=== PATIENT | male | born 1960 | race Caucasian/White ===

== ENCOUNTER 2023-11-25 11:21 | Outpatient (REF) | payer MEDICAID, SELFPAY ==
[2023-11-25 13:12] LABS: Ferritin 68 ng/mL (20-250)
== END 2023-11-25 11:22 | disposition home or self-care (01) ==
LOC: HO.BBR 11:21
PROVIDERS: Visit Provider Internal Medicine Gastroenterology
DX: E83.110 Hereditary hemochromatosis (principal)
CPT/HCPCS: 36415; 82728

== ENCOUNTER 2024-03-30 11:17 | Outpatient (REF) | payer MEDICARE, SELFPAY ==
[2024-03-30 14:07] LABS: Ferritin 38 ng/mL (20-250)
== END 2024-03-30 11:18 | disposition home or self-care (01) ==
LOC: HO.BBR 11:17
PROVIDERS: PCP Family Medicine; Visit Provider Internal Medicine Gastroenterology
DX: E83.110 Hereditary hemochromatosis (principal)
CPT/HCPCS: 36415; 82728

== ENCOUNTER 2024-07-26 10:53 | Outpatient (REF) | payer MEDICARE, SELFPAY ==
[2024-07-26 13:08] LABS: Ferritin 26 ng/mL (20-250)
== END 2024-07-26 10:54 | disposition home or self-care (01) ==
LOC: HO.BBR 10:53
PROVIDERS: PCP Family Medicine; Visit Provider Internal Medicine Gastroenterology
DX: E83.110 Hereditary hemochromatosis (principal)
CPT/HCPCS: 36415; 82728

== ENCOUNTER 2024-12-31 09:57 | Outpatient (REF) | payer MEDICARE, SELFPAY ==
[2024-12-31 12:22] LABS: Ferritin 17 ng/mL (20-250)
== END 2024-12-31 09:58 | disposition home or self-care (01) ==
LOC: HO.BBR 09:57
PROVIDERS: Visit Provider Internal Medicine Gastroenterology
DX: E83.110 Hereditary hemochromatosis (principal)
CPT/HCPCS: 36415; 82728

== ENCOUNTER 2025-04-26 10:53 | Outpatient (REF) | payer MEDICARE, SELFPAY ==
[2025-04-26 12:13] LABS: Ferritin 15 ng/mL (20-250)
--- OUTSIDE RECORDS SUMMARY | 2025-04-26 13:09 | XMS_ITS | Encounter Summary ---
Author Organization [facility] Address [address] [place] [address] Phone Care Team Providers Care Dive Superintendent Name Role Phone Silas Rinaldi MD Primary Care Provider [phone] Silas Rinaldi MD Unavailable [phone] Joaquina William CLINICAL ABSTRACTOR Primary Care Provider [phone] Rafael Paiz MD Unavailable [phone] Maximino Fraser CLINICAL ABSTRACTOR Primary Care Pr ovider Tacos Adams MD Primary Care Provider [phone] Encounter Details Date Type Department Care Team (Latest Contact Info) Description 05/15/2018 Transcribe Orders [facility] Therapeutic Phlebotomy [address] [place] [address] Deven Bran MD [address] [place] [address] Hemochromatosis, unspecified hemochromatosis type (Primary Dx) Social History Tobacco Use Types Packs/Day Years Used Date Smoking Tobacco: Never Assessed Sex and Gender Information Value Date Recorded Sex Assigned at Not on file Legal Sex Male 9:50 PM EDT Gender Identity Not on file Sexual Orientation Not on file documented as of this encounter Plan of Treatment Not on file documented as of this encounter Procedures Procedure Name Priority Date/Time Associated Diagnosis Comments THERAPEUTIC PHLEBOTOMY Routine 05/20/2018 8:59 AM EDT Hemochromatosis, unspecified hemochromatosis type documented in this encounter Results * Therapeutic phlebotomy (05/20/2018 8:59 AM EDT) Jhoana Garcia - 05/20/2018 8:59 AM EDT See therapeutic phlebotomy flowsheet for procedure details Deven Bran MD PROCEDURE/MINOR SURGICAL PERFO RMABLES Final Result documented in this encounter Visit Diagnoses Diagnosis Hemochromatosis, unspecified hemochromatosis type- Primary documented in this encounter Care Teams Dive Superintendent Relationship Specialty Start Date End Date Silas Rinaldi MD [email or web address] PCP - General 06/05/17 04/26/21 Joaquina William NP [address] [place] [address] [email or web address] PCP - General 04/27/21 03/27/23 Maximino Fraser NP [address] [place] [address] [email or web address] PCP - General Nurse Practitioner 03/28/23 12/09/24 Tacos Adams MD [address] [place] [address] [email or web address] PCP - General Internal Medicine 12/10/24 Silas Rinaldi MD [address] [place] [phone] [email or web address] Insurance Assigned Provider 12/20/17 04/28/21 Rafael Paiz MD [address] [place] [address] [email or web address] Insurance Assigned Provider 06/23/21 06/23/22 documented as of this encounter Additional Source Comments The information contained in this document represents components of the legal health record. It is not the complete legal health record.[facility]
--- OUTSIDE RECORDS SUMMARY | 2025-04-26 13:09 | XMS_ITS | Encounter Summary ---
Author Organization [facility] Address [address] [place] [address] Phone Care Team Providers Care Process Validation Engineer Name Role Phone Silas Rinaldi MD Primary Care Provider [phone] Silas Rinaldi MD Unavailable [phone] Joaquina William TRUCK RENTAL MANAGER Primary Care Provider [phone] Rafael Paiz MD Unavailable [phone] Vicki Walden Halima Ailyn TRUCK RENTAL MANAGER Primary Care Pr ovider Tacos Adams MD Primary Care Provider [phone] Encounter Details Date Type Department Care Team (Latest Contact Info) Description 05/15/2018 Transcribe Orders [facility] Therapeutic Phlebotomy 30 [place] [address] Deven Bran MD [address] [place] [address] Hemochromatosis, unspecified hemochromatosis type (Primary Dx) Social [...] on file documented as of this encounter Results * Ferritin (05/20/2018 8:55 AM EDT) FERRITIN 47 30 - 400 ug/L [facility] Blood 05/20/2018 8:55 AM EDT 05/20/2018 8:56 AM EDT us Deven Bran MD LAB BLOOD ORDERABLES Final Res ult [address] [address] documented in this encounter Visit Diagnoses Diagnosis Hemochromatosis, unspecified hemochromatosis type- Primary documented in this encounter Care Teams Process Validation Engineer Relationship Specialty Start Date End Date Silas Rinaldi MD [email or web address] PCP - General 06/05/17 04/26/21 Joaquina William NP [address] [place] [address] [email or web address] PCP - General 04/27/21 03/27/23 Vicki Walden Halima ABEL Robertson [address] [place] [address] [email or web address] PCP - General Nurse Practitioner 03/28/23 12/09/24 Tacos Adams MD [address] [place] [address] [email or web address] PCP - General Internal Medicine 12/10/24 Silas Rinaldi MD [address] [place] [phone] [email or web address] Insurance Assigned Provider 12/20/17 04/28/21 Rafael Paiz MD [address] [place] [address] [email or web address] Insurance Assigned Provider 06/23/21 06/23/22 documented as of this encounter Additional Source Comments The information contained in this document represents components of the legal health record. It is not the complete legal health record.[facility]
--- OUTSIDE RECORDS SUMMARY | 2025-04-26 13:09 | XMS_ITS | Encounter Summary ---
Author Organization [facility] Address [address] [place] [address] Phone Care Team Providers Care Account Adjuster Name Role Phone Silas Rinaldi MD Primary Care Provider [phone] Silas Rinaldi MD Unavailable [phone] Joaquina William KEY PUNCH OPERATOR Primary Care Provider [phone] Rafael Paiz MD Unavailable [phone] Maximino Fraser KEY PUNCH OPERATOR Primary Care Pr ovider Tacos Adams MD Primary Care Provider [phone] Encounter Details Date Type Department Care Team (Latest Contact Info) Description 06/25/2017 Transcribe Orders Virtual Department 30 [place] [address] Deven Gonzalez MD [address] [place] [address] [email or web address] Hemochromatosis, unspecified hemochromatosis type (Primary Dx) Social [...] on file documented as of this encounter Visit Diagnoses Diagnosis Hemochromatosis, unspecified hemochromatosis type- Primary documented in this encounter Care Teams Account Adjuster Relationship Specialty Start Date End Date Silas Rinaldi MD [email or web address] PCP - General 06/05/17 04/26/21 Joaquina William, ABEL [address] [place] [address] [email or web address] PCP - General 04/27/21 03/27/23 Maximino Fraser NP [address] [place] [address] [email or web address] PCP - General Nurse Practitioner 03/28/23 12/09/24 Tacos Adams MD [address] [place] [address] [email or web address] PCP - General Internal Medicine 12/10/24 Silas Rinaldi MD [address] [place] [phone] [email or web address] Insurance Assigned Provider 12/20/17 04/28/21 Rafael Paiz MD [address] [place] [address] [email or web address] Insurance Assigned Provider 06/23/21 06/23/22 documented as of this encounter Additional Source Comments The information contained in this document represents components of the legal health record. It is not the complete legal health record.[facility]
--- OUTSIDE RECORDS SUMMARY | 2025-04-26 13:09 | XMS_ITS | Clinical Summary ---
Author Organization [facility] Address [address] [place] [address] Phone Care Team Providers Care Repair Clerk Name Role Phone Tacos Adams MD Primary Care Provider Allergies No known active allergies Medications No known medications Encounters Date Type Department Care Team Description 03/04/2025 10:30 AM EDT Office Visit [facility] General Surgical Care [address] [place] [address] [place] [address] Brigette Vieira MD Status post bilateral inguinal hernia repair (Primary Dx) 02/11/2025 Telephone [facility] Surgical [address] [place] [address] Brigette Vieira MD post op call 02/10/2025 10:51 AM EDT - 02/10/2025 12:39 PM EDT Surgery OR Admitting Dept - Virtual Department [address] [place] [address] Brigette Vieira MD LAPAROSCOPIC REPAIR HERNIA INGUINAL 02/10/2025 10:50 AM EDT Anesthesia Event OR Admitting Dept - Virtual Department [address] [place] [address] Fareed Mota Jr., Rosa Maria Lynch MD 02/10/2025 9:19 AM EDT - 02/10/2025 1:37 PM EDT Hospital Encounter OR Admitting Dept - Virtual Department [address] [place] [address] Brigette Vieira MD Discharge Disposition: Home or Self Care 02/10/2025 Procedure Pass OR Admitting Dept - Virtual Department 30 [place] [address] 02/09/2025 8:00 AM EDT Pre-Admission Testing Pre Procedure Evaluation 30 [place] [address] Brigette Vieira MD from Last 3 Months Immunizations Immunization Administration Dates Next Due Td (adult),2 Lf Tetanus Toxoid, PF, Adsorbed Tdap 04/05/2011 Social History Tobacco Use Types Packs/Day Years Used Date Smoking Tobacco: Never Smokeless Tobacco: Never Tobacco Cessation:Counseling Given: Not Answered Alcohol Use Standard Drinks/Week Comments Not Currently 0 (1 standard drink = 0.6 oz pur e alcohol) Education Answer Date Recorded Are you interested in more education? Not on tara e 12/13/2022 Are you concerned about learning? Not on file 12/13/2022 No 12/13/2022 No 12/13/2022 Digital Access Answer Date Recorded No 01/11/2023 No 01/11/2023 Reliable internet access at home? Not on file 01/11/2023 Device with a working camera? Not on file Intimate Partner Violence Answer Date R ecorded Are you denied basic needs s uch as food, clothing, or medical care? No 02/10/2025 In the past 12 months have y ou been in a relationship with a person who hurts, threatens, or tries to control you? No 02/10/2025 Are you denied basic needs s uch as food, clothing, or medical care? No 02/10/2025 In the past 12 months have y ou been in a relationship with a person who hurts, threatens, or tries to control you? No 02/10/2025 Sex and Gender Information Value Date Recorded Sex Assigned at Not on file Legal Sex Male 9:50 PM EDT Gender Identity Not on file Sexual Orientation Not on file Last Filed Vital Signs Vital Sign Reading Time Taken Comments Blood Pressure 120/60 03/04/2025 11:25 AM EDT Pulse 65 03/04/2025 11:25 AM EDT Temperature 36.6 C (97.8 F) 03/04/2025 11:25 AM EDT Respiratory Rate 12 02/10/2025 12:45 PM EDT Oxygen Saturation 97% 03/04/2025 11:25 AM EDT Inhaled Oxygen Concentration - - Weight 70.3 kg (155 lb) 02/10/2025 9:30 AM EDT Height 167.6 cm (5' 6 ) 02/10/2025 9:30 AM EDT Body Mass Index 25.02 02/10/2025 9:30 AM EDT Plan of Treatment Health Maintenance Due Date Last Done Comments DEPRESSION SCREENING 1970 COLOGUARD 11/24/2003 COLONOSCOPY 11/24/2003 COLORECTAL CANCER SCREENING 11/24/2003 FIT TEST 11/24/2003 FOBT 11/24/2003 SIGMOIDOSCOPY 11/24/2003 VIRTUAL COLONOSCOPY 11/24/2003 PNEUMOCOCCAL VACCINES (50+ years) (1 of 1 - PCV) 2008 ZOSTER VACCINES (1 of 2) 2008 INFLUENZA VACCINE (#1) 2025 COVID-19 VACCINE (1 - 2023-2 5 season) 2025 SCREENING FOR DIABETES 11/10/2026 , 03/20/2023 LIPID PANEL 03/20/2028 03/20/2023, 03/20/2023, 03/20/2023 Adult Td,Tdap Booster 03/06/2033 03/06/2023 , 04/05/2011 RSV VACCINE (1 - 1-dose 75+ series) 2033 HEPATITIS C SCREENING Completed 10/29/2019 SMOKING STATUS SCREENING (On ce After 26 Yrs) Completed 03/04/2025 HEPATITIS A VACCINES Aged Out No long er eligible based on patient's age to complete this topic HIB VACCINES Aged Out No longer eligi ble based on patient's age to complete this topic MENINGOCOCCAL VACCINES (ACWY) Aged Out No longer eligible based on patient's age to complete this topic MENINGOCOCCAL VACCINES (B) Aged Out N o longer eligible based on patient's age to complete this topic Medical Devices Implanted Type Area Laborer [employer] Device Identifier Shelf Expiration Date Model / Serial / Lot Graft Mesh 10.5cm 16cm 3dmax Polypropylene Monofilament Patch Laparoscopy Hernia Repair Right - [id number] Implanted:Qty: 1 on 02/10/2025 by Brigette Vieira MD at [facility] STANDARD Right: Abdomen [employer] 08/14/2029 [id number] / / [id number] Graft Mesh 10.5cm 16cm 3dmax Polypropylene Monofilament Patch Laparoscopy Hernia Repair Left - [id number] Implanted:Qty: 1 on 02/10/2025 by Brigette Vieira MD at [facility] Left: Inguinal [employer] 10/15/2028 [id number] / / Procedures Procedure Name Priority Date/Time Associated Diagnosis Comments AIRWAY PLACEMENT Routine 02/10/2025 10:5 6 AM EDT NE LAP,INGUINAL HERNIA REPR,INITIAL 02/10/2025 10:53 AM EDT Non-recurrent bilateral inguinal hernia without obstruction or gangrene from Last 3 Months Results * ANES ETT DOUBLE LUMEN - AIRWAY LDA (02/10/2025 10:56 AM EDT) Narrative Eddie Shen CRNA - 02/10/2025 10:56 AM EDT Eddie Shen CRNA 02/10/2025 11:08 AM Airway Placement Procedure Note: Patient was not difficult to intubate. Procedure performed by: fellow/resident/SOLUTION LEAD Anesthesiologist: Fareed Mota Jr., DO Fellow/Resident/SOLUTION LEAD: Eddie Shen CRNA Airway procedure initiated at:02/10/2025 10:56 AM and ended at. Personal Protective Equipment: Mask: surgical mask Gloves: gloves Mask Ventilation: Quality: easy Airway Placement: Technique: direct laryngoscopy Rapid sequence induction: no Details: Blade type: Mac Blade size: 3 Direct view: grade 1 Number of attempts: 1 ETT type: cuffed ETT size: 7.5 ETT depth at teeth: 22 ETT cuff inflation volume: 5 Tube position confirmed by: bilateral breath sounds and EtCO2 Outcomes: Evidence of dental injury? no Complications observed? no Fareed Mota Jr., DO NE ANESTHESIA Final R esult from Last 3 Months Insurance MEDICARE PART A & B Member Subscriber Plan / Payer (Ef fective 2023-Present) Name:Linda Paez Member ID:[id number] Relation to Subscriber:Self Name:Linda Paez Subscriber ID:[id number] Payer ID:[id number] Group ID:Not on file Type:Medicare Address: [facility] [employer] [facility] 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 It is not the complete legal health record.[facility]
--- OUTSIDE RECORDS SUMMARY | 2025-04-26 13:09 | XMS_ITS | Encounter Summary ---
Author Organization [facility] Address [address] [place] [address] Phone Care Team Providers Care Assistant Grocery Store Manager Name Role Phone Stewart Joaquina Kirby HERBOLOGIST Primary Care Provider [phone] Halima Fraser HERBOLOGIST Primary Care Pr ovider Tacos Adams MD Primary Care Provider [phone] Encounter Details Date Type Department Care Team (Latest Contact Info) Description 03/21/2023 Transcribe Orders [facility] Laboratory [address] [place] [address] Deven Gonzalez MD [address] [facility] [address] [place] [address] [email or web address] Hereditary hemochromatosis (Primary Dx); Diarrhea, unspecified type Social History Tobacco Use Types Packs/Day Years Used Date Smoking Tobacco: Never Assessed Education Answer Date Recorded Are you interested in more education? Not on tara e 12/13/2022 Are you concerned about learning? Not on file 12/13/2022 No 12/13/2022 No 12/13/2022 Digital Access Answer Date Recorded No 01/11/2023 No 01/11/2023 Reliable internet access at home? Not on file 01/11/2023 Device with a working camera? Not on file Sex and Gender Information Value Date Recorded Sex Assigned at Not on file Legal Sex Male 9:50 PM EDT Gender Identity Not on file Sexual Orientation Not on file documented as of this encounter Plan of Treatment Not on file documented as of this encounter Results * Giardia antigen screen (03/28/2023 11:00 AM EDT) ST GIARDIA ANTIGEN Negative Negative [facility] DPT OF LAB MED AND PAT+ Comment: (NOTE) ADDITIONAL INFORMATION Test Performed by Enzyme Immunoassay. Stool (Stool) 03/28/2023 11: 00 AM EDT 03/28/2023 1:14 PM EDT Deven Gonzalez MD MICROBIOLOGY - GENERAL ORD ERABLES Final Result Performing Organization Address [facility] Co de Phone Number [facility] DPT OF LAB MED AND PAT+ [address] [place] [address] * Ova and parasites, stool (03/28/2023 11:00 AM EDT) Parasitic exam FINAL 3 1120 [facility] DPT OF LAB MED AND PAT+ Comment: (NOTE) SOURCE: STOOL, STLP OVA AND PARASITE, MICROSCOPY, F FINAL No parasites seen. Red blood cells present. Cryptosporidium, Cyclospora, and microsporidia are not readily detected by this method. Single negative specimen does not rule out parasitic infection. Stool (Stool) 03/28/2023 11: 00 AM EDT 03/28/2023 1:14 PM EDT Deven Gonzalez MD MICROBIOLOGY - GENERAL ORD ERABLES Final Result Performing Organization Address City/[facility] Co de Phone Number [facility] DPT OF LAB MED AND PAT+ [address] [place] [address] * Ova and parasites, stool (03/27/2023 6:40 AM EDT) Parasitic exam JONATHAN 3 1639 [facility] DPT OF LAB MED AND PAT+ Comment: (NOTE) SOURCE: STOOL, STLP Additional Report OVA AND PARASITE, MICROSCOPY, F FINAL No parasites seen. Cryptosporidium, Cyclospora, and microsporidia are not readily detected by this method. Single negative specimen does not rule out parasitic infection. Red blood cells present. Corrected on 04/07 AT 1741: previously reported as FINAL 04/04/2023 1053 Stool (Stool) 03/27/2023 6:4 0 AM EDT 03/28/2023 1:14 PM EDT Deven Gonzalez MD MICROBIOLOGY - GENERAL ORD ERABLES Edited Result - Final Performing Organization Address City/[facility]/ZIP Co de Phone Number [facility] DPT OF LAB MED AND PAT+ [address] [place] [address] * Ova and parasites, stool (03/26/2023 6:40 AM EDT) Parasitic exam FINAL 3 1142 [facility] DPT OF LAB MED AND PAT+ Comment: (NOTE) SOURCE: STOOL, STLP OVA AND PARASITE, MICROSCOPY, F FINAL No parasites seen. Leukocytes present. Red blood cells present. Cryptosporidium, Cyclospora, and microsporidia are not readily detected by this method. Single negative specimen does not rule out parasitic infection. Stool (Stool) 03/26/2023 6:4 0 AM EDT 03/28/2023 1:13 PM EDT Deven Gonzalez MD MICROBIOLOGY - GENERAL ORD ERABLES Final Result Performing Organization Address [facility] Co de Phone Number [facility] DPT OF LAB MED AND PAT+ [address] [place] [address] * Ferritin (03/21/2023 9:09 AM EDT) FERRITIN 51 30 - 400 ug/L [facility] Blood 03/21/2023 9:09 AM EDT 03/21/2023 9:18 AM EDT Deven Gonzalez MD LAB BLOOD ORDERABLES Final Result Performing Organization Address City/[facility]/ZIP Co de Phone Number [facility] [address] [place] [address] * TSH (03/21/2023 9:09 AM EDT) TSH 1.28 0.27 - 4.20 uIU/mL [facility] Blood 03/21/2023 9:09 AM EDT 03/21/2023 9:18 AM EDT Deven Gonzalez MD LAB BLOOD ORDERABLES Final Result Performing Organization Address City/[facility]/ZIP Co de Phone Number [address] [address] * (ABNORMAL) Iron and iron binding capacity (03/21/2023 9:09 AM EDT) Pathologist [facility] IRON 200(H) 45 - 160 ug/dL [facility] IRON BINDING CAPACITY 260 228 - 428 ug/dL [facility] TRANSFERRIN SATURAT. 77(H) 20 - 55 % [facility] Blood 03/21/2023 9:09 AM EDT 03/21/2023 9:18 AM EDT Deven Gonzalez MD LAB BLOOD ORDERABLES Final Result Performing Organization Address City/[facility] Co de Phone Number [address] [address] * (ABNORMAL) Comprehensive metabolic panel (03/21/2023 9:09 AM EDT) SODIUM 137 133 - 146 mmol/L [facility] POTASSIUM 4.5 3.3 - 5.1 mmol/L [facility] CHLORIDE 99 96 - 108 mmol/L [facility] CO2 27 21 - 35 mmol/L [facility] BUN 22(H) 6 - 19 mg/dL [facility] CREATININE 0.80 0.5 - 1.5 mg/dL [facility] GLUCOSE 91 70 - 99 mg/dL [facility] ALBUMIN 4.3 3.9 - 4.8 g/dL [facility] TOTAL PROTEIN 7.0 6.5 - 8.0 g/dL [facility] CALCIUM 9.5 8.4 - 10.3 mg/dL [facility] ALKALINE PHOSPHATASE 67 39 - 117 U/L [facility] TOTAL BILIRUBIN 0.6 0.0 - 1.2 mg/dL [facility] AST 22 0 - 37 U/L [facility] ALT 21 0 - 40 U/L [facility] GLOBULIN 2.7 1 - 4.8 g/dL [facility] EGFR 99 >59 mL/min/1.7 3m2 [facility] Comment:Estimated glomerular filtration rate calculated using the CKD-EPI refit equation. ANION GAP 16 10 - 20 mmol/L [facility] Blood 03/21/2023 9:09 AM EDT 03/21/2023 9:18 AM EDT us Deven Gonzalez MD LAB BLOOD ORDERABLES Final Result [address] [address] * (ABNORMAL) CBC (03/21/2023 9:09 AM EDT) WBC 5.59 4.00 - 11.00 K/uL [facility] RBC 4.68 3.90 - 5.69 M/uL [facility] HGB 15.5 12.4 - 17.3 g/dL [facility] HCT 44.4 37.0 - 51.0 % [facility] PLT 266 140 - 430 K/uL [facility] MCV 94.9 78.0 - 97.0 fL [facility] MCH 33.1(H) 25.0 - 33.0 pg [facility] MCHC 34.9 32.0 - 36.0 g/dL [facility] RDW 11.8 11.0 - 15.0 % [facility] MPV 10.2 8.4 - 12.8 fl [facility] Blood 03/21/2023 9:09 AM EDT 03/21/2023 9:18 AM EDT us Deven Gonzalez MD LAB BLOOD ORDERABLES Final Result [address] [address] * Immunoglobulin A (03/21/2023 9:09 AM EDT) IgA 274 70 - 400 mg/dL [facility] Blood 03/21/2023 9:09 AM EDT 03/21/2023 9:18 AM EDT Deven Gonzalez MD LAB BLOOD ORDERABLES Final Result Performing Organization Address City/[facility]/ZIP Co de Phone Number [facility] [address] [place] [address] * Tissue transglutaminase IgA (03/21/2023 9:09 AM EDT) TTG IGA ANTIBODY <1.2 <4.0 (Negative) U/mL [facility] Blood 03/21/2023 9:09 AM EDT 03/21/2023 9:17 AM EDT Deven Gonzalez MD LAB BLOOD ORDERABLES Final Result Performing Organization Address City/[facility]/ZIP Co de Phone Number [facility] [address] [place] [address] documented in this encounter Visit Diagnoses Diagnosis Hereditary hemochromatosis- Primary Diarrhea, unspecified type documented in this encounter Care Teams Assistant Grocery Store Manager Relationship Specialty Start Date End Date Joaquina William NP [address] [place] [address] [email or web address] PCP - General 04/27/21 03/27/23 Halima Fraser NP [address] [place] [address] [email or web address] PCP - General Nurse Practitioner 03/28/23 12/09/24 Tacos Adams MD [address] [place] [address] [email or web address] PCP - General Internal Medicine 12/10/24 documented as of this encounter Additional Source Comments The information contained in this document represents components of the legal health record. It is not the complete legal health record.[facility]
--- OUTSIDE RECORDS SUMMARY | 2025-04-26 13:09 | XMS_ITS | Encounter Summary ---
Author Organization [facility] Address [address] [place] [address] Phone Care Team Providers Care Long Distance Billing Operator Name Role Phone Silas Rinaldi MD Primary Care Provider [phone] Silas Rinaldi MD Unavailable [phone] Joaquina William SYSTEMS TECHNICIAN Primary Care Provider [phone] Rafael Paiz MD Unavailable [phone] Halima Fraser SYSTEMS TECHNICIAN Primary Care Pr ovider Tacos Adams MD Primary Care Provider [phone] Encounter Details Date Type Department Care Team (Latest Contact Info) Description 10/21/2018 Transcribe Orders [facility] Therapeutic Phlebotomy [address] [place] [address] Susie West PA [address] [place] [address] Hemochromatosis, unspecified hemochromatosis type (Primary Dx) Social [...] documented as of this encounter Results * Therapeutic phlebotomy (05/04/2019 9:35 AM EDT) Narrative Michelle Leggett - 05/04/2019 9:35 AM EDT See Therapeutic phlebotomy flow sheet for details. us Susie Barnesughton PA PROCEDURE/MINOR SURGICAL PE RFORMABLES Final Result * Therapeutic phlebotomy (11/10/2018 10:35 AM EDT) Jhoana Garcia - 11/10/2018 10:35 AM EDT See therapeutic phlebotomy flow sheet for details Susie Livingston Brett POWELL PROCEDURE/MINOR SURGICAL PE RFORMABLES Final Result documented in this encounter Visit Diagnoses Diagnosis Hemochromatosis, unspecified hemochromatosis type- Primary Hemochromatosis, unspecified hemochromatosis type Hemochromatosis, unspecified hemochromatosis type documented in this encounter Care Teams Long Distance Billing Operator Relationship Specialty Start Date End Date Silas Rinaldi MD [email or web address] PCP - General 06/05/17 04/26/21 Joaquina William NP [address] [place] [address] [email or web address] - General 04/27/21 03/27/23 Halima Fraser NP [address] [place] [address] [email or web address] PCP - General Nurse Practitioner 03/28/23 12/09/24 Tacos Adams MD [address] [place] [phone] [email or web address] PCP - General Internal Medicine 12/10/24 Silas Rinaldi MD [address] [place] [phone] [email or web address] Insurance Assigned Provider 12/20/17 04/28/21 Rafael Paiz MD [address] [place] [address] [email or web address] Insurance Assigned Provider 06/23/21 06/23/22 documented as of this encounter Additional Source Comments The information contained in this document represents components of the legal health record. It is not the complete legal health record.[facility]
--- OUTSIDE RECORDS SUMMARY | 2025-04-26 13:09 | XMS_ITS | Encounter Summary ---
Author Organization [facility] Address [address] [place] [address] Phone Care Team Providers Care Bell Cleaner Name Role Phone Tacos Adams MD Primary Care Provider [phone] Encounter Details Date Type Department Care Team (Late st Contact Info) Description 02/10/2025 Procedure Pass OR Admitting Dept - Virtual Department 30 [place] [address] Social History Tobacco Use Types Packs/Day Years Used Date Smoking Tobacco: Never Smokeless Tobacco: Never Alcohol Use Standard Drinks/Week Comments Not Currently [...] documented as of this encounter Visit Diagnoses Not on filedocumented in this encounter Care Teams Bell Cleaner Relationship Specialty Start Date End Date Tacos Adams MD [email or web address] PCP - General Internal Medicine 12/10/24 documented as of this encounter Additional Source Comments The information contained in this document represents components of the legal health record. It is not the complete legal health record.[facility]
--- OUTSIDE RECORDS SUMMARY | 2025-04-26 13:09 | XMS_ITS | Encounter Summary ---
Author Organization [facility] Address [address] [place] [address] Phone Care Team Providers Care Needle Grader Name Role Phone Silas Rinaldi MD Primary Care Provider [phone] Silas Rinaldi MD Unavailable [phone] Joaquina William ELEMENTARY MATH TUTOR Primary Care Provider [phone] Rafael Paiz MD Unavailable [phone] Vicki Walden Maximino Ailyn ELEMENTARY MATH TUTOR Primary Care Pr ovider Tacos Adams MD Primary Care Provider [phone] Encounter Details Date Type Department Care Team (Latest Contact Info) Description 10/28/2019 Transcribe Orders [facility] Therapeutic Phlebotomy 30 [place] [address] Joaquina William, ELEMENTARY MATH TUTOR [address] [address] [email or web address] Hemochromatosis, unspecified hemochromatosis type (Primary Dx) Social [...] Primary documented in this encounter Care Teams Needle Grader Relationship Specialty Start Date End Date Silas Rinaldi MD [email or web address] PCP - General 06/05/17 04/26/21 Joaquina William, ABEL [address] [place] [address] [email or web address] - General 04/27/21 03/27/23 Maximino Fraser NP [address] [place] [phone] [email or web address] PCP - General Nurse Practitioner 03/28/23 12/09/24 Tacos Adams MD [address] [place] [phone] [email or web address] PCP - General Internal Medicine 12/10/24 Silas Rinaldi MD [address] [place] [phone] [email or web address] Insurance Assigned Provider 12/20/17 04/28/21 Rafael Paiz MD [address] [place] [phone] [email or web address] Insurance Assigned Provider 06/23/21 06/23/22 documented as of this encounter Additional Source Comments The information contained in this document represents components of the legal health record. It is not the complete legal health record.[facility]
--- OUTSIDE RECORDS SUMMARY | 2025-04-26 13:10 | XMS_ITS | Encounter Summary ---
Author Organization [facility] Address [address] [place] [address] Phone Care Team Providers Care Railroad Car Repair Supervisor Name Role Phone Silas Rinaldi MD Unavailable [phone] Joaquina William TRUCK BENCH MECHANIC Primary Care Provider [phone] Rafael Paiz MD Unavailable [phone] Halima Fraser TRUCK BENCH MECHANIC Primary Care Pr ovider Tacos Adams MD Primary Care Provider [phone] Encounter Details Date Type Department Care Team (Latest Contact Info) Description 04/27/2021 Transcribe Orders [facility] Laboratory [address] [place], [place] [id number] Deven Gonzalez MD [address] [address] [email or web address] Hereditary hemochromatosis (Primary Dx) Social History Tobacco Use Types Packs/Day Years Used Date Smoking Tobacco: Never Assessed Sex and Gender Information Value Date Recorded Sex Assigned at Not on file Legal Sex Male 9:50 PM EDT Gender Identity Not on file Sexual Orientation Not on file documented as of this encounter Plan of Treatment Not on file documented as of this encounter Results * Ferritin (04/27/2021 2:05 PM EDT) FERRITIN 70 30 - 400 ug/L [facility] Blood 04/27/2021 2:05 PM EDT 04/27/2021 2:10 PM EDT us Deven Gonzalez MD LAB BLOOD ORDERABLES Final Result [address] [address] * Iron and iron binding capacity (04/27/2021 2:05 PM EDT) IRON 146 45 - 160 ug/dL [facility] IRON BINDING CAPACITY 271 228 - 428 ug/dL [facility] TRANSFERRIN SATURAT. 54 20 - 55 % [facility] Blood 04/27/2021 2:05 PM EDT 04/27/2021 2:10 PM EDT us Deven Gonzalez MD LAB BLOOD ORDERABLES Final Result Performing Organization Address City/[facility]/ZIP Co de Phone Number [address] [address] * (ABNORMAL) Comprehensive metabolic panel (04/27/2021 2:05 PM EDT) SODIUM 133 133 - 146 mmol/L [facility] POTASSIUM 4.0 3.3 - 5.1 mmol/L [facility] CHLORIDE 99 96 - 108 mmol/L [facility] CO2 22 21 - 35 mmol/L [facility] BUN 11 6 - 19 mg/dL [facility] CREATININE 0.80 0.5 - 1.5 mg/dL [facility] GLUCOSE 103(H) 70 - 99 mg/dL [facility] ALBUMIN 4.6 3.9 - 4.8 g/dL [facility] TOTAL PROTEIN 7.8 6.5 - 8.0 g/dL [facility] CALCIUM 10.1 8.4 - 10.3 mg/dL [facility] ALKALINE PHOSPHATASE 84 39 - 117 U/L [facility] TOTAL BILIRUBIN 0.6 0.0 - 1.2 mg/dL [facility] AST 31 0 - 37 U/L [facility] ALT 19 0 - 40 U/L [facility] GLOBULIN 3.2 1 - 4.8 g/dL [facility] EGFR 96 >59 mL/min/1.7 3m2 [facility] Comment:Estimated glomerular filtration rate calculated using the CKD-EPI equation. ANION GAP 16 10 - 20 mmol/L [facility] Blood 04/27/2021 2:05 PM EDT 04/27/2021 2:10 PM EDT us Deven Gonzalez MD LAB BLOOD ORDERABLES Final Result Performing Organization Address City/[facility]/ZIP Co de Phone Number [address] [address] * CBC (04/27/2021 2:05 PM EDT) WBC 8.51 4.00 - 11.00 K/uL [facility] RBC 4.38 3.90 - 5.69 M/uL [facility] HGB 13.5 12.4 - 17.3 g/dL [facility] HCT 39.6 37.0 - 51.0 % [facility] PLT 290 140 - 430 K/uL [facility] MCV 90.4 78.0 - 97.0 fL [facility] MCH 30.8 25.0 - 33.0 pg [facility] MCHC 34.1 32.0 - 36.0 g/dL [facility] RDW 14.6 11.0 - 15.0 % [facility] MPV 10.1 8.4 - 12.8 fl [facility] NRBC 0.00 0 /100 WBCs [facility] ABSOLUTE NRBC 0.00 0 K/uL [facility] Blood 04/27/2021 2:05 PM EDT 04/27/2021 2:10 PM EDT us Deven Gonzalez MD LAB BLOOD ORDERABLES Final Result [address] [address] documented in this encounter Visit Diagnoses Diagnosis Hereditary hemochromatosis- Primary documented in this encounter Care Teams Railroad Car Repair Supervisor Relationship Specialty Start Date End Date Joaquina William NP [address] [place] [phone] [email or web address] - General 04/27/21 03/27/23 Halima Fraser NP [address] [place] [phone] [email or web address] PCP - General Nurse Practitioner 03/28/23 12/09/24 Tacos Adams MD [address] [place] [phone] [email or web address] PCP - General Internal Medicine 12/10/24 Silas Rinaldi MD [address] [place] [phone] [email or web address] Assigned Provider 12/20/17 04/28/21 Rafael Paiz MD [address] [place] [phone] [email or web address] Insurance Assigned Provider 06/23/21 06/23/22 documented as of this encounter Additional Source Comments The information contained in this document represents components of the legal health record. It is not the complete legal health record.[facility]
== END 2025-04-26 10:54 | disposition home or self-care (01) ==
LOC: HO.BBR 10:53
PROVIDERS: Visit Provider Internal Medicine Gastroenterology
DX: E83.110 Hereditary hemochromatosis (principal)
CPT/HCPCS: 36415; 82728